=== PATIENT | female | born 1990 | race American Indian/Alaskan Native ===

== ENCOUNTER 2018-04-05 01:00 | Emergency (ER) | payer MEDICAID, OTHER ==
[2018-04-05 01:00] VITALS: BMI 37.4
--- NOTE | 2018-04-05 02:30 | C.PDOC ---
History Of Present Illness Pt c/o of frontal headache x 1 day with no associated photophobia, nausea, vomiting, neck pain,fever or visual c/o. Pt states " think my BP is high". Pt has not taken any meds for this headache. Denies weakness, numbness, dizziness Time Seen by Provider: 04/05/18 01:36 Chief Complaint (Nursing): Headache History Per: Patient History/Exam Limitations: no limitations Current Symptoms Are (Timing): Still Present Severity: Moderate Pain Scale Rating Of: 7 Quality: Aching, Tightness Preceeding Symptoms: None Recent travel outside of the [place]: No Past Medical History Vital Signs: Last Vital Signs Temp 98.3 F 04/05/18 02:31 Pulse 73 04/05/18 02:31 Resp 20 04/05/18 02:31 BP 133/64 04/05/18 02:31 Pulse Ox 98 04/05/18 02:35 - Medical History PMH: HTN Family History: States: Unknown Family Hx - Social History Hx Tobacco Use: No Hx Alcohol Use: Yes Hx Substance Use: No - Immunization History Hx Tetanus Toxoid Vaccination: No Hx Influenza Vaccination: No Hx Pneumococcal Vaccination: No Review Of Systems Constitutional: Negative for: Fever Eyes: Negative for: Vision Change Cardiovascular: Negative for: Chest Pain, Palpitations Gastrointestinal: Positive for: Nausea, Vomiting Neurological: Positive for: Headache. Negative for: Weakness, Numbness, Dizziness Physical Exam - Physical Exam Appears: Well, Non-toxic Skin: Normal Color Eye(s): bilateral: Normal Inspection, PERRL, EOMI Neck: Normal ROM, Supple Chest: Symmetrical, No Tenderness Cardiovascular: Rhythm Regular Respiratory: Normal Breath Sounds, Decreased Breath Sounds Neurological/Psych: Oriented x3, Normal Speech, Normal Motor, Normal Sensation Gait: Steady ED Course And Treatment O2 Sat by Pulse Oximetry: 98 Pulse Ox Interpretation: Normal Progress Note: Pt remains stable, improved with motrin. Advise follow up with PMD Reevaluation Time: 02:35 Reassessment Condition: Improved Disposition - Disposition Referrals: [facility] [Outside] Disposition: HOME/ ROUTINE Disposition Time: 04:48 Condition: UNKNOWN Additional Instructions: Tylenol or advil for headache Please follow up with pMD for BP management Return to ER if sever headache, weakness, chest pain or worse Instructions: Headache, Adult (DC) Forms: [facility] (Georgian), School Excuse - Clinical Impression Clinical Impression: Headache
[2018-04-05 02:32] VITALS: BP 133/64; PULSE 73; RESP 20; TEMP 98.3
[2018-04-05 02:35] VITALS: O2SAT 98
== END 2018-04-05 02:51 | disposition home or self-care (01) ==
LOC: C.ER 01:00
DX: R51 Headache (principal); I10 Essential (primary) hypertension